=== PATIENT | female | born 1950 | race Caucasian/White ===

== ENCOUNTER 2021-04-04 21:14 | Emergency (ER) | payer MEDICARE, MEDICAID ==
[2021-04-04] MEDS ORDERED: Sodium Chloride 0.9% 10 ML Syringe FLUSH PRN (21:27)
[2021-04-04] MEDS ORDERED: Sodium Chloride 0.9% 1,000 ML IV ONE (21:33)
--- NOTE | 2021-04-04 21:34 | EDM.PDOC ---
ED HPI GENERAL MEDICAL PROBLEM - General Chief Complaint: General Stated Complaint: GENERALIZED WEAKNESS Time Seen by Provider: 04/04/21 21:20 Source of Information: Reports: Patient, EMS, Family History Limitations: Reports: No Limitations - History of Present Illness INITIAL COMMENTS - FREE TEXT/NARRATIVE: 71 YO WF PRESENTS TO ER BY EMS COMPLAINING OF GENERALIZED WEAKNESS WHICH BEGAN TODAY. PT REPORTS SHE FEELS "TIRED". PT REPORTS DRINKING ALCOHOL TONIGHT WELL TAKING HER PAIN MEDICATIONS. PT DENIES HEADACHE, NO CHEST PAIN, NO SHORTNESS OF BREATH, NO RECENT ILLNESS. PT DENIES ANY FOCAL NEUROLOGICAL DEFICITS. GSC-15; ALERT AND ORIENTED X 4 AND DENIES MOTOR/SENSORY DEFICITS. PT REPORTS CHRONIC LOW BACK PAIN FOR WHICH SHE TAKES PAIN MEDICATION DAILY. PT DENIES NAUSE A/VOMITING/DIARRHEA. PT APPROPRIATE ON HPI- NO SLURRED SPEECH, NO FACIAL DROOP, NO ATAXIA. Onset: Today Location: Reports: Generalized Severity: Mild Improves with: Reports: Rest Worsens with: Reports: None Associated Symptoms: Reports: No Other Symptoms, Weakness. Denies: Confusion, Chest Pain, Cough, Fever/Chills, Nausea/Vomiting, Shortness of Breath, Syncope - Related Data Allergies Allergy/AdvReac Type Severity Reaction Status Date / Time coconut Allergy Swelling Verified 12/14/17 23:53 Home Meds: Home Meds Cyclobenzaprine [Flexeril] 10 mg PO DAILY 12/14/17 [History] Eszopiclone 2 mg PO BEDTIME 12/14/17 [History] FLUoxetine HCl [Prozac] 60 mg PO DAILY 12/14/17 [History] Valsartan/Hydrochlorothiazide [Valsartan-Hctz 160-25 mg Tab] 1 tab PO DAILY 12/14/17 [History] Past Medical History Cardiovascular History: Reports: Hypertension Respiratory History: Reports: COPD Musculoskeletal History: Reports: Back Pain, Chronic Other Musculoskeletal History: Injury from fall/ladder, 12 years ago. ED ROS GENERAL - Review of Systems Review Of Systems: See Below Constitutional: Reports: No Symptoms HEENT: Reports: No Symptoms Respiratory: Reports: No Symptoms Cardiovascular: Reports: No Symptoms Endocrine: Reports: Fatigue GI/Abdominal: Reports: No Symptoms : Reports: No Symptoms Musculoskeletal: Reports: No Symptoms Skin: Reports: No Symptoms Neurological: Reports: Weakness. Denies: Confusion, Dizziness, Headache, Numbness, Paresthesia, Pre-Existing Deficit, Syncope, Trouble Speaking, Difficulty Walking, Change in Speech, Gait Disturbance Psychiatric: Reports: No Symptoms Hematologic/Lymphatic: Reports: No Symptoms Immunologic: Reports: No Symptoms ED EXAM, GENERAL - Physical Exam Exam: See Below Exam Limited By: No Limitations General Appearance: Alert, WD/WN, No Apparent Distress Eye Exam: Bilateral Eye: EOMI, PERRL Throat/Mouth: Normal Inspection, Normal Lips, Normal Teeth, Normal Gums, Normal Oropharynx, Normal Voice, No Airway Compromise Head: Atraumatic, Normocephalic Neck: Normal Inspection, Supple, Non-Tender, Full Range of Motion Respiratory/Chest: No Respiratory Distress, Lungs Clear, Normal Breath Sounds, No Accessory Muscle Use, Chest Non-Tender Cardiovascular: Normal Peripheral Pulses, Regular Rate, Rhythm, No Edema, No Gallop, No JVD, No Murmur, No Rub GI/Abdominal: Normal Bowel Sounds, Soft, Non-Tender, No Organomegaly, No Distention, No Abnormal Bruit, No Mass Back Exam: Full Range of Motion, Paraspinal Tenderness Extremities: Normal Inspection, Normal Range of Motion, Non-Tender, Normal Capillary Refill, No Pedal Edema Neurological: Alert, Oriented, CN II-XII Intact, Normal Cognition, Normal Gait, No Motor/Sensory Deficits Psychiatric: Normal Affect, Normal Mood Skin Exam: Warm, Dry, Intact, Normal Color, No Rash Lymphatic: No Adenopathy #1 Interpretation EKG Date: 04/04/21 Time: 22:01 Rhythm: NSR Rate (Beats/Min): 59 [place]: Normal P-Wave: Present QRS: Normal ST-T: Normal QT: Normal Comparison: NA - No Prior EKG Course - Orders/Labs/Meds Orders: Active Orders 24 hr Category Date Time Status Cardiac Monitoring [RC] . DIRECTED Care 04/04/21 21:26 Active Peripheral IV Care [RC] . DIRECTED Care 04/04/21 21:28 Active Chest 1V Frontal [CR] Stat Exams 04/04/21 21:25 Ordered Head wo Cont [CT] Stat Exams 04/04/21 21:25 Ordered Sodium Chloride 0.9% [Normal Saline] 1,000 ml Med 04/04/21 21:33 Active IV .BOLUS Sodium Chloride 0.9% [Saline Flush] Med 04/04/21 21:27 Active 10 ml FLUSH Q8HR PRN Peripheral IV Insertion Adult [OM.PC] Routine Oth 04/04/21 21:27 Ordered EKG 12 Lead [EK] Stat Ther 04/04/21 21:26 Ordered Medication Orders Sodium Chloride (Normal Saline) 1,000 mls @ 999 mls/hr IV .BOLUS ONE Stop: 04/04/21 22:33 Sodium Chloride (Sodium Chloride 0.9% 10 Ml Syringe) 10 ml FLUSH Q8HR PRN PRN Reason: keep vein open Labs: Laboratory Tests 04/04/21 04/04/21 Range/Units 21:51 21:51 WBC 4.87 L (5.00-10.00) 10^3/uL RBC 4.49 (3.80-5.50) 10^6/uL Hgb 14.6 (12.0-16.0) g/dL Hct 44.8 (37.0-47.0) % MCV 99.8 H (82.0-92.0) fL MCH 32.5 H (27.0-31.0) pg MCHC 32.6 (32.0-36.0) g/dL RDW 13.0 (11.5-14.5) % Plt Count 222 (150-400) 10^3/uL MPV 9.0 (7.4-10.4) fL Immature Gran % (Auto) 0.0 (0.0-5.0) % Neut % (Auto) 57.4 (50.0-70.0) % Lymph % (Auto) 28.7 (20.0-40.0) % [place] % (Auto) 12.1 H (2.0-8.0) % Eos % (Auto) 1.4 (1.0-3.0) % Baso % (Auto) 0.4 (0.0-1.0) % Neut # (Auto) 2.79 (2.50-7.00) 10^3/uL Lymph # (Auto) 1.40 (1.00-4.00) 10^3/uL [place] # (Auto) 0.59 (0.10-0.80) 10^3/uL Eos # (Auto) 0.07 L (0.10-0.30) 10^3/uL Baso # (Auto) 0.02 (0.00-0.10) 10^3/uL Immature Gran # (Auto) 0.00 (0.00-0.50) 10^3/uL Sodium 136 L (138-146) mmol/L Potassium 4.4 (3.5-4.5) mmol/L Chloride 103 (98-107) mmol/L Carbon Dioxide 25.1 (21.0-32.0) mmol/L Anion Gap 12.3 (5-15) mmol/L BUN 12 (7-18) mg/dL Creatinine 0.58 (0.51-1.17) mg/dL Est Cr Clr Drug Dosing TNP Estimated GFR (MDRD) > 60 mL/min Glucose 95 (74-100) mg/dL Calcium 8.8 (8.7-10.3) mg/dL Total Bilirubin 0.6 (0.2-1.0) mg/dL AST 36 (15-37) U/L ALT 29 (14-63) U/L Alkaline Phosphatase 84 (46-116) U/L Troponin I High Sens 6.100 (0-51.000) pg/mL Total Protein 7.1 (6.4-8.2) g/dL Albumin 3.65 (3.40-5.00) g/dL Ethyl Alcohol 170 H* (NOT DETECTED) mg/dL Meds: Medications Generic Name Dose Route Start Last Admin Trade Name Freq PRN Reason Stop Dose Admin Sodium Chloride 1,000 mls @ 999 mls/hr 04/04/21 21:33 Normal Saline IV 04/04/21 22:33 .BOLUS ONE Sodium Chloride 10 ml 04/04/21 21:27 Sodium Chloride 0.9% 10 Ml Syringe FLUSH Q8HR PRN keep vein open - Radiology Interpretation Free Text/Narrative:: CT HEAD-NAD CXR- RIGHT LOWER LOBE ATELECTASIS Departure - Departure Time of Disposition: 22:26 Disposition: Home, Self-Care 01 Condition: Fair Clinical Impression: Generalized weakness Alcohol intoxication Qualifiers: Complication of substance-induced condition: uncomplicated Qualified Code(s): F10.920 - Alcohol use, unspecified with intoxication, uncomplicated - Discharge Information Instructions: Alcohol Intoxication, [id number], Weakness, [id number] Referrals: PCP,Unknown [Primary Care Provider] - Forms: ED Department Discharge Additional Instructions: 1. DISCHARGE HOME- FAMILY HERE WILL TRANSPORT HOME 2. SUPPORTIVE CARE 3. DECREASE ALCOHOL CONSUMPTION 4. FOLLOW UP WITH PCP FOR FURTHER EVALUATION AND TREATMENT 5. RETURN TO ER FOR WORSENING SYMPTOMS - My Orders Last 24 Hours: My Active Orders 04/04/21 21:25 Chest 1V Frontal [CR] Stat Head wo Cont [CT] Stat 04/04/21 21:26 Cardiac Monitoring [RC] . DIRECTED EKG 12 Lead [EK] Stat 04/04/21 21:27 Sodium Chloride 0.9% [Saline Flush] 10 ml FLUSH Q8HR PRN Peripheral IV Insertion Adult [OM.PC] Routine 04/04/21 21:28 Peripheral IV Care [RC] . DIRECTED 04/04/21 21:33 Sodium Chloride 0.9% [Normal Saline] 1,000 ml IV .BOLUS - Assessment/Plan Last 24 Hours: My Active Orders 04/04/21 21:25 Chest 1V Frontal [CR] Stat Head wo Cont [CT] Stat 04/04/21 21:26 Cardiac Monitoring [RC] . DIRECTED EKG 12 Lead [EK] Stat 04/04/21 21:27 Sodium Chloride 0.9% [Saline Flush] 10 ml FLUSH Q8HR PRN Peripheral IV Insertion Adult [OM.PC] Routine 04/04/21 21:28 Peripheral IV Care [RC] . DIRECTED 04/04/21 21:33 Sodium Chloride 0.9% [Normal Saline] 1,000 ml IV .BOLUS Assessment:: 1. GENERALIZED WEAKNESS 2. ALCOHOL INTOXICATION Plan: 1. DISCHARGE HOME- FAMILY HERE WILL TRANSPORT HOME 2. SUPPORTIVE CARE 3. DECREASE ALCOHOL CONSUMPTION 4. FOLLOW UP WITH PCP FOR FURTHER EVALUATION AND TREATMENT 5. RETURN TO ER FOR WORSENING SYMPTOMS
[2021-04-04 22:03] LABS: CHLORIDE,CL 103 mmol/L (98-107); SODIUM,NA 136 mmol/L (138-146)
[2021-04-04 22:22] LABS: ANION GAP 12.3 mmol/L (5-15)
--- NOTE | 2021-04-05 08:11 | CT ---
[id number] CT/CT Head WO IV EXAM: CT Head WO IV CLINICAL DATA: CHANGE IN MENTAL STATUS COMPARISON: CORRELATION IS MADE WITH THE EXAM DATED DECEMBER 14, 2017 FINDINGS: There is no mass or mass effect. There is no hemorrhage or hydrocephalus. There are no extra-axial fluid collections. There are no sites of abnormal attenuation. IMPRESSION: NO PLAIN CT EVIDENCE OF ACUTE INTRACRANIAL PROCESS. Rajan Vivar MD 04/05/21 0810 Thank you for allowing us to participate in the care of your patient.
--- NOTE | 2021-04-05 08:11 | CR ---
[id number] RAD/RAD Chest PA or AP 1V EXAM: SINGLE VIEW CHEST. INDICATION: CHANGE IN MEDICAL STATUS COMPARISON: CORRELATION IS MADE WITH THE EXAM 41 MONTH EARLIER FINDINGS: The lungs are clear. The cardiomediastinal contour is stable IMPRESSION: NO PNEUMONIA OR EDEMA Rajan Vivar MD 04/05/21 4048 Thank you for allowing us to participate in the care of your patient.
== END 2021-04-04 23:00 | disposition home or self-care (01) ==
LOC: KA.ED 21:14
DX: R53.1 Weakness (principal); F10.129 Alcohol abuse with intoxication, unspecified; J44.9 Chronic obstructive pulmonary disease, unspecified; I10 Essential (primary) hypertension; Y90.6 Blood alcohol level of 120-199 mg/100 ml
CPT/HCPCS: 36415; 70450; 71045; 80053; 80307; 84484; 85025; 99284; 99285-25; J7030